=== PATIENT | female | born 1990 | race Caucasian/White ===

== ENCOUNTER 2021-02-23 00:14 | Emergency (ER) | payer OTHER ==
[2021-02-23] MEDS ORDERED: Azithromycin 250 MG TAB ONE (01:29)
[2021-02-23] MEDS ORDERED: cefTRIAXone\\ROCEPHIN 500 MG VIAL ONE (01:29)
[2021-02-23] MEDS ORDERED: Sterile Water 10 ML ONE (01:30)
[2021-02-23 02:11] LABS: SARS-CoV-2 NAA Rapid Test Not Detected (NotDetected)
== END 2021-02-23 02:43 | disposition home or self-care (01) ==
LOC: MADERS 00:14
DX: J21.0 Acute bronchiolitis due to respiratory syncytial virus (principal); J06.9 Acute upper respiratory infection, unspecified; A64 Unspecified sexually transmitted disease; Z20.822 Contact with and (suspected) exposure to COVID-19; F17.210 Nicotine dependence, cigarettes, uncomplicated
CPT/HCPCS: 0241U; 71045; 96372; J0696

== ENCOUNTER 2021-07-13 17:11 | Emergency (ER) | payer OTHER ==
[2021-07-13 17:49] LABS: Bilirubin Negative (Negative); Blood, Urine Large (Negative); Glucose, Urine (Dipstick) Negative (Negative); Ketone, Urine Negative (Negative); Leukocyte Trace (Negative); Nitrite Negative (Negative); Protein, Urine (Dipstick) Negative (Neg-Trace); Urobilinogen 0.2 mg/dL (Less than 2)
[2021-07-13 17:51] LABS: Pregnancy Test - Urine (BHCG) Negative (Negative)
[2021-07-13 17:52] LABS: Pregu Control Background? CLEAR/WHITE (CLR/WHITE); Pregu Control Bar Appear? YES (CONTROL BAR); Specific Gravity 1.028 (1.002-1.036)
[2021-07-13 17:54] LABS: Clarity Hazy (Clear); Specific Gravity, Urine 1.028 (1.002-1.036)
[2021-07-13 18:01] LABS: Bacteria/HPF Rare-Few HPF (None Seen); Mucous/LPF 3+ LPF (<2+)
[2021-07-13] MEDS ORDERED: Doxycycline 100 MG CAP ONE (18:39)
[2021-07-13] MEDS ORDERED: metroNIDAZOLE 250 MG TAB ONE (18:40)
[2021-07-13] MEDS ORDERED: cefTRIAXone\\ROCEPHIN 500 MG VIAL ONE (18:40)
[2021-07-13] MEDS ORDERED: Lidocaine 1% 20 ML MDV ONE (18:40)
[2021-07-18 09:20] LABS: Chlamydia by PCR Not Detected (NotDetected); GC by PCR DETECTED (NotDetected)
== END 2021-07-13 19:15 | disposition home or self-care (01) ==
LOC: MADERS 17:11
DX: N73.9 Female pelvic inflammatory disease, unspecified (principal); F17.210 Nicotine dependence, cigarettes, uncomplicated
CPT/HCPCS: 81003; 81015; 81025; 87480; 87491; 87510; 87591; 87660; 96372; 99284; J0696